=== PATIENT | male | born 1965 | race African-American/Black ===

== ENCOUNTER → 2016-10-14 | Outpatient (REF) ==
[~2016-10-14] MED LIST: FLEXERIL 1010 MG/TAB PO
== END ==
LOC: WSOH 15:45 → EDBD 15:45
DX: Z02.89 Encounter for other administrative examinations (principal)

== ENCOUNTER → 2017-03-06 | Outpatient (REF) | LOC: WSOH 13:19 | DX: Z02.89 Encounter for other administrative examinations (principal) ==

== ENCOUNTER → 2017-04-17 | Outpatient (CLI) | payer BC | LOC: COL.RAD 04-15 10:30 | DX: K82.4 Cholesterolosis of gallbladder (principal) ==

== ENCOUNTER 2017-06-22 12:53 | Emergency (ER) | payer BC ==
[~2017-06-22] VITALS: Ht 170.2 cm; Wt 82.7 kg
[2017-06-22 13:00] VITALS: TEMP 98.2
[2017-06-22 13:50] LABS: BASO % 0.4 % (0.0-2.0); EOS # 0.1 (0.0-0.7); EOS % 2.3 % (0-4.0); GRAN # 2.7 (1.4-6.5); GRAN % 46.8 % (42.2-75.2); HEMATOCRIT 44.7 % (42.0-52.0); HEMOGLOBIN 15.3 g/dl (13.5-18.0); LYMPH # 2.4 (1.2-3.4); LYMPH % 41.7 % (20.0-51.0); MEAN CELL VOLUME 91 fl (80.0-100.0); MEAN CORPUSCULAR HEMOGLOBIN 31 pg (27.0-31.0); MEAN CORPUSCULAR HGB CONC 34 g/dl (33.0-37.0); MEAN PLATELET VOLUME 10.8 fl (7.4-10.4); MONO # 0.5 (0.1-0.6); MONO % 8.6 % (1.7-9.3); PLATELET COUNT 186 K/mm3 (130-400); RED BLOOD COUNT 4.94 M/mm3 (4.20-5.60); REDCELL DISTRIBUTION WIDTH-CV 13.6 % (11.5-14.5); WHITE BLOOD COUNT 5.7 K/mm3 (4.8-10.8)
[2017-06-22 13:52] LABS: PROTHROMBIN TIME 11.6 SECONDS (9.7-12.8)
[2017-06-22 14:05] LABS: ADJUSTED CALCIUM 9.4 mg/dL (8.4-10.2); ALBUMIN 4.5 gm/dL (3.5-5.0); BILIRUBIN,TOTAL 0.7 mg/dL (0.0-1.0); CALCIUM 9.8 mg/dL (8.4-10.2); CREATININE, serum 0.94 mg/dL (0.66-1.25); POTASSIUM 3.7 mmol/L (3.4-5.0)
[2017-06-22] MEDS ORDERED: FLEXERIL 1010 MG/TAB PO (14:46)
[2017-06-22 14:55] VITALS: BP 153/97; PULSE 60
== END 2017-06-22 14:56 | disposition home or self-care (01) ==
LOC: COL.ER 12:53
PROVIDERS: Emergency Medicine
DX: M25.512 Pain in left shoulder (principal); Z95.0 Presence of cardiac pacemaker

== ENCOUNTER → 2017-11-17 | Outpatient (CLI) | payer BC | LOC: MHCPAIN 14:38 | DX: G89.29 Other chronic pain (principal); M47.22 Other spondylosis with radiculopathy, cervical region | CPT/HCPCS: G0463 ==

== ENCOUNTER → 2022-11-14 | Outpatient (CLI) | payer BC | LOC: COL.RAD 07:12 | DX: R20.0 Anesthesia of skin (principal) | CPT/HCPCS: Q9967 ==